=== PATIENT | male | born 1975 | race Caucasian/White ===

== ENCOUNTER 2016-11-22 19:38 | Emergency (ER) | payer OTHER ==
[~2016-11-22] VITALS: Ht 190.5 cm; Wt 99.8 kg
--- NOTE | ~2016-11-22 | EKG ---
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 : 1975 Requested By: Monica Torres Order Number: [id number] MD: Daniel Freitas Measurements Intervals [place] Rate: 96 P: 55 CA: 199 QRS: 76 QRSD: 96 T: 136 QT: 338 QTc: 428 Interpretive Statements Sinus rhythm Borderline prolonged CA interval Left atrial enlargement Left ventricular hypertrophy Nonspecific ST and T wave abnormality Compared to ECG 01/10/2015 04:51:15 ST and T wave abnormality is now present Electronically Signed On 11-23-2016 8:56:02 CDT by Daniel Freitas [email or web address] <ELECTRONICALLY SIGNED> By: Daniel Freitas MD, [facility] 11/23/16 [id number] 40 Daniel Freitas MD, [facility] /EPI
[~2016-11-22 19:38] MED LIST: IBUPROFEN 800800 M1 PO; KEPPRA 500 MG500 M1 PO; LEXAPRO 10 MG T10 M1 PO; NORCO 5-325 TA1 EACH PO; VALACYCLOVIR1000 MG PO
[2016-11-22] MEDS ORDERED: IBUPROFEN 800800 M1 PO (19:51)
[2016-11-22] MEDS ORDERED: UNICOMPLEX M TA1 TA1 PO (19:51)
[2016-11-22 19:55] LABS: ABSOLUTE NEUTROPHILS 10.7 thou/uL (1.4-8.2); BASOPHILS 0.8 % (0.0-2.0); EOSINOPHILS 3.3 % (0.0-3.0); HEMATOCRIT 49.5 % (42.0-52.0); LYMPHOCYTES 27.5 % (24.0-44.0); MCHC 34.4 g/dL (28.0-37.0); MONOCYTES 5.7 % (1.0-8.0); PLATELET COUNT 379 thou/uL (150-400); POLYS 62.7 % (36.0-66.0); RBC 5.32 mil/uL (4.50-6.00); RDW 12.9 % (10.5-14.5); WBC 17.1 thou/uL (4.0-11.0)
[2016-11-22 19:56] LABS: MANUAL DIFF NO
[2016-11-22 20:03] LABS: ANION GAP 13 mmol/L (7-16); BUN 15 mg/dL (7-18); CALCIUM 10.6 mg/dL (8.5-10.1); CHLORIDE 102 mmol/L (98-107); CO2 24 mmol/L (21-32); CREATININE 0.9 mg/dL (0.7-1.3); GLUCOSE 90 mg/dL (74-106); POTASSIUM 4.2 mmol/L (3.5-5.1); SODIUM 139 mmol/L (136-145)
[2016-11-22 20:10] LABS: TROPONIN-I < 0.04 ng/mL (<0.04-0.07)
[2016-11-22] MEDS ORDERED: PROVENTIL HFA6.7 G1 INH (20:19)
[2016-11-22] MEDS ORDERED: PREDNISONE 20 M20 MG PO (20:19)
[2016-11-22 20:43] VITALS: BP 145/74
[2016-11-22] MEDS ORDERED: ALBUTEROL2.5 MG/31 INH (20:44)
== END 2016-11-22 20:49 | disposition home or self-care (01) ==
LOC: ER 19:38
PROVIDERS: Emergency Medicine
DX: J98.01 Acute bronchospasm (principal); R53.83 Other fatigue; F10.99 Alcohol use, unspecified with unspecified alcohol-induced disorder; Z87.891 Personal history of nicotine dependence; Z71.6 Tobacco abuse counseling